=== PATIENT | male | born 1985 ===

== ENCOUNTER 2023-02-08 03:53 | Day surgery (SDC) | payer OTHER ==
[2023-02-03 11:33] VITALS: BMI 27.2
[2023-02-08] MEDS ORDERED: LIDOCAINE HCL 1%, 10 MG/ML (20ML VIAL) ONE (14:41)
[2023-02-08] MEDS ORDERED: BUPIVACAINE HCL/PF 0.5% (5MG/ML) 10 ML VIAL ONE (14:42)
[2023-02-08] MEDS ORDERED: LIDOCAINE HCL 1%, 10 MG/ML (20ML VIAL) NR ONE (14:42)
[2023-02-08] MEDS ORDERED: PROPOFOL 40 ML ONE (15:32)
[2023-02-08] MEDS ORDERED: MIDAZOLAM HCL 2 MG/2 ML SINGLE DOSE VIAL ONE (15:33)
[2023-02-08] MEDS ORDERED: SUCCINYLCHOLINE CHLORIDE 200 MG/10 ML SYRINGE ONE (15:33)
[2023-02-08] MEDS ORDERED: DEXAMETHASONE SOD PHOSPHATE 4 MG/1 ML VIAL ONE (15:44)
[2023-02-08] MEDS ORDERED: ceFAZolin SODIUM 1 GM VIAL ONE (15:44)
[2023-02-08] MEDS ORDERED: ONDANSETRON 4 MG/2 ML VIAL ONE (15:44)
[2023-02-08] MEDS ORDERED: ceFAZolin SODIUM 1 GM VIAL IVPB ONE (15:46)
[2023-02-08] MEDS ORDERED: BUPIVACAINE HCL/PF 0.5% (5MG/ML) 10 ML VIAL IJ ONE ×2 (15:54)
[2023-02-08] MEDS ORDERED: ONDANSETRON 4 MG/2 ML VIAL IVPUSH PRN (16:36)
[2023-02-08] MEDS ORDERED: oxyCODONE HCL 5 MG TABLET PO PRN (16:36)
[2023-02-08] MEDS ORDERED: LACTATED RINGERS SOLUTION 1,000 ML IV SCH (16:45)
[2023-02-08 18:19] VITALS: PULSE 77; RESP 20; TEMP 97.3
[2023-02-08 19:03] VITALS: BP 114/67
== END 2023-02-08 19:05 | disposition home or self-care (01) ==
LOC: JASU-SURG 03:53
PROVIDERS: ATTEND Urology
PROC: 0VBQ0ZZ Excision of Bilateral Vas Deferens, Open Approach (ICD-10-PCS; principal; 2023-02-08 11:00)
DX: Z30.2 Encounter for sterilization (principal)
CPT/HCPCS: 88302-TC; 94760